=== PATIENT | male | born 1940 | race Caucasian/White ===

== ENCOUNTER 2019-04-05 09:29 | Emergency (ER) | payer MEDICARE, MEDICAID ==
[~2019-04-05] VITALS: Ht 165.1 cm; Wt 68.0 kg
[2019-04-05 09:29] VITALS: BP_SYST 119
--- NOTE | 2019-04-05 09:29 | NUR ---
Patient to ER bed 2 to gown for evaluation. Side rails up. Report given to Vinicio RUDD
--- NOTE | 2019-04-05 09:30 | NUR ---
Patient was brought in via BLS from [facility] s/p fall and laceration above left eyebrow. Patient is lethargic, A/O x2. Per paramedics, patient has a history of dementia. Patient denies any pain at this time, laceration is approximately 2cm, held together by steristrips, no active bleeding noted.
--- NOTE | 2019-04-05 09:35 | NUR ---
ER Dr. Walsh at bedside examining patient.
--- NOTE | 2019-04-05 10:10 | NUR ---
Patient transported to radiology via gurney, accompanied by live truck technician.
--- NOTE | 2019-04-05 10:24 | NUR ---
Returned from radiology, back to [facility].
[2019-04-05 10:34] LABS: BASOPHILS # (AUTO) 0.1 K/uL (0.0-0.2); BASOPHILS % (AUTO) 0.4 % (0.0-2.0); EOSINOPHILS # (AUTO) 0.1 K/uL (0.0-0.4); EOSINOPHILS % (AUTO) 0.5 % (0.0-4.0); HEMATOCRIT 35.7 % (36-54); LYMPHOCYTES # (AUTO) 1.7 K/uL (1.0-5.5); LYMPHOCYTES % (AUTO) 12.1 % (20.5-51.5); MEAN CORPUSCULAR HEMOGLOBIN 30 pg (27-31); MEAN CORPUSCULAR HGB CONC 34 % (32-36); MEAN CORPUSCULAR VOLUME 90 fL (79.0-98.0); MONOCYTES # (AUTO) 0.8 K/uL (0.0-1.0); MONOCYTES % (AUTO) 5.5 % (1.7-9.3); NEUTROPHILS # (AUTO) 11.7 K/uL (1.8-7.7); NEUTROPHILS % (AUTO) 81.5 % (40.0-70.0); PLATELET COUNT (AUTO) 305 K/uL (130-430); RED BLOOD CELL COUNT(AUTO) 3.95 MIL/uL (4.2-6.2); RED CELL DISTRIBUTION WIDTH 14.1 % (9.0-15.0); WHITE BLOOD COUNT (AUTO) 14.3 K/uL (4.8-10.8)
[2019-04-05 10:40] LABS: ANION GAP 7 (5-15); CALCIUM 8.5 mg/dL (8.4-11.0); CHLORIDE 102 mmol/L (98-107); CREATININE 1.43 mg/dL (0.55-1.30); GLUCOSE 154 mg/dL (70-99); POTASSIUM 4.3 mmol/L (3.5-5.1); SODIUM SERUM 136 mmol/L (136-145); UREA NITROGEN, BLOOD 23 mg/dL (8-21)
[2019-04-05] MEDS ORDERED: MOM PO (10:43)
[2019-04-05] MEDS ORDERED: FLEETMO RC (10:43)
[2019-04-05] MEDS ORDERED: DOCU-144 PO (10:43)
[2019-04-05] MEDS ORDERED: ACET-2165 PO ×2 (10:43)
[2019-04-05] MEDS ORDERED: CAT.1 PO (10:43)
[2019-04-05] MEDS ORDERED: INSU100V9 SQ (10:43)
[2019-04-05] MEDS ORDERED: LISI40TA4 PO (10:43)
[2019-04-05] MEDS ORDERED: AMAN100C16 PO (10:43)
[2019-04-05] MEDS ORDERED: SSREG SUBCUT (10:43)
[2019-04-05] MEDS ORDERED: LIP20 PO (10:43)
[2019-04-05] MEDS ORDERED: GLUC1KIT IM (10:43)
--- NOTE | 2019-04-05 10:43 | NUR ---
Medication reconciliation completed with information provided by [facility]. Any prior medication reconciliation on file was reviewed and corrected.
[2019-04-05 10:44] LABS: INR 1.1 (0.80-1.20); PROTHROMBIN TIME 10.7 SECS (9.5-12.5)
[2019-04-05 10:46] LABS: ALANINE AMINOTRANSFERASE 57 U/L (12-78); ALBUMIN 2.8 g/dL (3.4-4.8); ASPARTATE AMINOTRANSFERASE 27 U/L (10-37); TOTAL BILIRUBIN 0.3 mg/dL (0.0-1.0)
--- NOTE | 2019-04-05 13:11 | NUR ---
Patient to be transferred to [facility]. Is being transferred due to higher level of care. Receiving facility has accepting physician and available space. ER physician has signed transfer form. Patient or responsible constitution party has agreed to transfer and signed form. Patient belongings inventoried and will be sent with patient. Copy of nursing notes, lab reports, EKG, Physicians Orders and X-rays to be sent with patient. Report called to Jyoti at receiving facility. Receiving physician is Dr. Vargas. [facility] has been called for transfer. ETA is [id number].
--- NOTE | 2019-04-05 13:21 | NUR ---
[facility] onsite to transfer patient.
[2019-04-05 13:33] VITALS: BP_SYST 144
== END 2019-04-05 13:33 | disposition short-term general hospital (02) ==
LOC: SED 09:29
DX: S01.112A Laceration without foreign body of left eyelid and periocular area, initial encounter (principal); R79.89 Other specified abnormal findings of blood chemistry; Z79.4 Long term (current) use of insulin; Z79.899 Other long term (current) drug therapy; W18.39XA Other fall on same level, initial encounter; Y93.89 Activity, other specified; Y92.89 Other specified places as the place of occurrence of the external cause; Y99.8 Other external cause status
CPT/HCPCS: 36415; 70450-TC; 71045; 72125-TC; 80053; 81002; 82550-TC; 82962; 83605; 84484; 85025; 85610-TC; 85730-TC; 87040-TC; 87086; 99285